=== PATIENT | male | born 1995 | race African-American/Black ===

== ENCOUNTER 2025-07-06 12:21 | Emergency (ER) | payer OTHER ==
[~2025-07-06] VITALS: Ht 177.8 cm; Wt 100.0 kg
[2025-07-06] MEDS ORDERED: BUPR1FIL7 SL (12:57)
[2025-07-06] MEDS ORDERED: BUPR1FIL3 SL (12:57)
[2025-07-06 13:36] LABS: PLATELET COUNT (AUTO) 271 K/uL (150-450); RED BLOOD CELL COUNT(AUTO) 5.36 MIL/uL (4.50-5.90); RED CELL DISTRIBUTION WIDTH 13.7 % (11.5-14.5); WHITE BLOOD COUNT (AUTO) 11.9 K/uL (4.5-11.0)
[2025-07-06 13:47] LABS: CALCIUM, TOTAL 8.3 mg/dL (8.8-10.5); CREATININE 1.12 mg/dL (0.60-1.30); GLOMERULAR FILTR. RATE CALC > 60 mL/min (>60); GLUCOSE,RANDOM 84 mg/dL (70-110); SODIUM SERUM 139 mmol/L (136-145); UREA NITROGEN, BLOOD 13 mg/dL (7-18)
[2025-07-06] MEDS: SODIUM CHLORIDE 0.9% 1,000 ML IV ONE (13:56)
[2025-07-06] MEDS: LIDOCAINE 1% 10 ML VIAL SQ ONE (13:56)
[2025-07-06] MEDS: BACITRACIN 0.9 GM PACKET OINTMENT TP ONE (13:56)
[2025-07-06 15:19] VITALS: BP 143/85; PULSE 50; RESP 20; TEMP 98.205296; O2SAT 99
== END 2025-07-06 16:28 ==
LOC: EMS 12:25
DX: S01.112A Laceration without foreign body of left eyelid and periocular area, initial encounter (principal); R55 Syncope and collapse; W22.8XXA Striking against or struck by other objects, initial encounter; Y93.89 Activity, other specified; Y92.89 Other specified places as the place of occurrence of the external cause; Y99.8 Other external cause status
CPT/HCPCS: 99285; 96360; 70450; 71045; 96361; 80048; 85025; 36415; 93005; 12013; J3490; J7030